=== PATIENT | male | born 1995 | race Caucasian/White ===

== ENCOUNTER 2017-09-03 05:37 | Emergency (ER) | payer BC, OTHER ==
[~2017-09-03] VITALS: Ht 180.3 cm; Wt 70.0 kg
[2017-09-03 05:43] VITALS: TEMP 36.7; Ht 180.3 cm; Wt 70.0 kg
[2017-09-03] MEDS ORDERED: ONDANSETRON 4MG OD TAB PO ONE (06:00)
[2017-09-03 06:14] VITALS: O2SAT 97
[2017-09-03 06:25] LABS: HEMATOCRIT 44.3 % (42-52); HEMOGLOBIN 16.5 g/dL (14.0-18.0); MEAN CELL VOLUME 83.9 fL (80-100); MEAN CORPUSCULAR HEMOGLOBIN 31.3 pg (25-34); MEAN CORPUSCULAR HGB CONC 37.2 g/dl (32-36); MEAN PLATELET VOLUME 9.7 fL (7.4-10.4); PLATELET COUNT 307 K/uL (130-400); RED CELL DISTRIBUTION WIDTH CV 12.3 % (11.5-14.5); RED CELL DISTRIBUTION WIDTH SD 37.2 fL (36.4-46.3); WHITE BLOOD COUNT 27.18 K/uL (4.8-10.8)
[2017-09-03 06:27] LABS: ALBUMIN 4.8 gm/dl (3.4-5.0); CALCIUM 9.2 mg/dl (8.5-10.1); CREATININE 1.11 mg/dl (0.60-1.40); POTASSIUM 3.3 mmol/L (3.5-5.1)
[2017-09-03 06:30] LABS: TOTAL PROTEIN 8.2 gm/dl (6.4-8.2)
[2017-09-03] MEDS ORDERED: SODIUM CHLORIDE 0.9% 1000ML 1,000 ML IV STA ×2 (06:48→07:50)
[2017-09-03 06:58] LABS: BASO % 0.1 %; BASO ABS # 0.04 K/uL (0-0.2); IG# 0.11 K/uL (0.00-0.02); LYMPH % 5.7 %; LYMPH ABS # 1.56 K/uL (1.2-3.4); MONO % 4.3 %; MONO ABS # 1.16 K/uL (0.11-0.59); NEUT % 89.5 %; NEUT ABS # 24.31 K/uL (1.4-6.5)
--- NOTE | 2017-09-03 06:59 | EMERGENCY ROOM VISIT NOTE ---
History Report prepared by Trish: Ladan Molina Under the Supervision of: Dr. Hope Lopes D.O. 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 The patient presents to the ED by EMS. He was drinking alcohol today. He states that he had too much to drink. He is nauseous and has vomited a lot. He has a sore throat. He reports abdominal pain. He denies any fall or injury. He had an appendectomy 1 week ago. 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 A total of 10 systems reviewed and were otherwise negative. Past Medical & Surgical Surgical Problems: (1) S/P appendectomy Family History No pertinent family history stated. Social History Smoking Status: Current Every Day Smoker Alcohol Use: occasionally Drug Use: cocaine Marital Status: single Occupation Status: [employer] student Current/Historical Medications No Active Prescriptions or Reported Meds Allergies Coded Allergies: Alcohol (Verified Allergy, Unknown, red syndrome, 09/03/17) Uncoded Allergies: POISON JEREMIAS (Allergy, Unknown, RASH, 09/04/16) Physical Exam Vital Signs Date Time Temp Pulse Resp B/P (MAP) Pulse Ox O2 Delivery O2 Flow Rate FiO2 09/03/17 07:57 89 14 101/71 94 09/03/17 06:14 97 Nasal Cannula 2.0 09/03/17 06:13 88 Room Air 09/03/17 06:13 80 16 106/56 97 Nasal Cannula 2.0 09/03/17 05:44 108 09/03/17 05:43 98 Room Air 09/03/17 05:43 36.7 106 18 122/63 98 Room Air Physical Exam GENERAL: alert, smells of EtOH, well nourished, no distress, non-toxic EYE EXAM: normal conjunctiva, PERRL and EOM's grossly intact OROPHARYNX: no exudate, no erythema, lips, buccal mucosa, and tongue normal and mucous membranes are dry NECK: supple, no nuchal rigidity, no adenopathy, non-tender LUNGS: Clear to auscultation. Normal chest wall mechanics HEART: no murmurs, S1 normal and S2 normal ABDOMEN: Healing fresh laparoscopic surgical sites. Steri strips beginning to peel. No surrounding erythema. No drainage. Abdomen soft, non-tender, normo- active bowel sounds, no masses, no rebound or guarding. BACK: Back is symmetrical on inspection and there is no deformity, no midline tenderness, no CVA tenderness. SKIN: no rashes and no bruising UPPER EXTREMITIES: upper extremities are grossly normal. LOWER EXTREMITIES: No pitting edema. NEURO EXAM: Normal sensorium, cranial nerves II-XII grossly intact, normal speech, no gross weakness of arms, no gross weakness of legs. Medical Decision & Procedures Laboratory Results 09/03/17 08:20 Red Blood Count 4.81, Mean Corpuscular Volume 84.8, Mean Corpuscular Hemoglobin 30.8, Mean Corpuscular Hemoglobin Concent 36.3, Mean Platelet Volume 9.3, Neutrophils (%) (Auto) 87.2, Lymphocytes (%) (Auto) 6.3, Monocytes (%) (Auto) 6.2, Eosinophils (%) (Auto) 0.0, Basophils (%) (Auto) 0.1, Neutrophils # (Auto) 18.06, Lymphocytes # (Auto) 1.30, Monocytes # (Auto) 1.28, Eosinophils # (Auto) 0.00, Basophils # (Auto) 0.02 09/03/17 05:45 Test 09/03/17 05:45 09/03/17 08:20 Anion Gap 15.0 mmol/L (3-11) Est Creatinine Clear Calc Drug Dose 104.2 ml/min Estimated GFR () 109.4 Estimated GFR (Non- 94.4 BUN/Creatinine Ratio 11.9 (10-20) Calcium Level 9.2 mg/dl (8.5-10.1) Total Bilirubin 0.9 mg/dl (0.2-1) Aspartate Amino Transf (AST/SGOT) 16 U/L (15-37) Alanine Aminotransferase (ALT/SGPT) 17 U/L (12-78) Alkaline Phosphatase 55 U/L (45-117) Total Protein 8.2 gm/dl (6.4-8.2) Albumin 4.8 gm/dl (3.4-5.0) Globulin 3.4 gm/dl (2.5-4.0) Albumin/Globulin Ratio 1.4 (0.9-2) Ethyl Alcohol mg/dL 142.0 mg/dl (0-3) White Blood Count 20.71 K/uL (4.8-10.8) Red Blood Count 4.81 M/uL (4.7-6.1) Hemoglobin 14.8 g/dL (14.0-18.0) Hematocrit 40.8 % (42-52) Mean Corpuscular Volume 84.8 fL (80-100) Mean Corpuscular Hemoglobin 30.8 pg (25-34) Mean Corpuscular Hemoglobin Concent 36.3 g/dl (32-36) Platelet Count 244 K/uL (130-400) Mean Platelet Volume 9.3 fL (7.4-10.4) Neutrophils (%) (Auto) 87.2 % Lymphocytes (%) (Auto) 6.3 % Monocytes (%) (Auto) 6.2 % Eosinophils (%) (Auto) 0.0 % Basophils (%) (Auto) 0.1 % Neutrophils # (Auto) 18.06 K/uL (1.4-6.5) Lymphocytes # (Auto) 1.30 K/uL (1.2-3.4) Monocytes # (Auto) 1.28 K/uL (0.11-0.59) Eosinophils # (Auto) 0.00 K/uL (0-0.5) Basophils # (Auto) 0.02 K/uL (0-0.2) RDW Standard Deviation 37.9 fL (36.4-46.3) RDW Coefficient of Variation 12.2 % (11.5-14.5) Immature Granulocyte % (Auto) 0.2 % Immature Granulocyte # (Auto) 0.05 K/uL (0.00-0.02) Laboratory results per my review. Medications Administered Medications (Trade) Dose Ordered Sig/Maribel Route Start Time Stop Time Status Last Admin Dose Admin Ondansetron HCl (Zofran Odt) 4 mg ONE ONCE PO 09/03/17 06:00 09/03/17 06:01 DC 09/03/17 06:00 4 MG Sodium Chloride 1,000 ml @ 999 mls/hr Q1H1M STAT IV 09/03/17 06:48 09/03/17 07:48 DC 09/03/17 07:22 999 MLS/HR Sodium Chloride 1,000 ml @ 999 mls/hr Q1H1M STAT IV 09/03/17 07:50 09/03/17 08:50 09/03/17 07:57 999 MLS/HR ED Course 0545: The patient was evaluated in room B6. A complete history and physical exam was performed. 0600: Zofran Odt 4 mg PO. 0648: NSS 1000 ml @ 999 mls/hr IV. 0838: Patient resting, heart rate 84, other vital signs stable. Patient states nausea and abdominal pain are improved. Abdomen soft and nontender on exam. Medical Decision Differential diagnosis: Etiologies such as alcohol intoxication, toxicologic, infection, hypoglycemia, electrolyte abnormalities, cardiac sources, intracerebral event, neurologic, as well as others were entertained. Medication Reconcilliation Current Medication List: was personally reviewed by me Blood Pressure Screening Patient's blood pressure: Normal blood pressure Blood pressure disposition: Did not require urgent referral Impression Primary Impression: Alcoholic intoxication Additional Impressions: Dehydration Leukocytosis Scribe Attestation The scribe's documentation has been prepared under my direction and personally reviewed by me in its entirety. I confirm that the note above accurately reflects all work, treatment, procedures, and medical decision making performed by me. Departure Information Dispostion Home / Self-Care Prescriptions No Active Prescriptions or Reported Meds Referrals No Doctor, Assigned (PCP) Patient Instructions My [facility] Additional Instructions Please drink responsibly and a safe location, do not drink and drive. If you have any new or concerning symptoms, please return the emergency room. Please liquids at frequent intervals to stay well-hydrated. Please follow-up with her family doctor or surgeon to have your way blood cell count rechecked as it was mildly elevated here. This could be related to your vomiting however given your recent surgery, a follow-up recheck these to be performed to assure that it has returned to normal levels. Problem Qualifiers Primary Impression: Alcoholic intoxication Complication of substance-induced condition: uncomplicated Qualified Codes: F10.920 - Alcohol use, unspecified with intoxication, uncomplicated Additional Impressions: Leukocytosis Leukocytosis type: unspecified Qualified Codes: D72.829 - Elevated white blood cell count, unspecified
[2017-09-03 08:33] LABS: BASO % 0.1 %; BASO ABS # 0.02 K/uL (0-0.2); HEMATOCRIT 40.8 % (42-52); HEMOGLOBIN 14.8 g/dL (14.0-18.0); IG# 0.05 K/uL (0.00-0.02); LYMPH % 6.3 %; MEAN CELL VOLUME 84.8 fL (80-100); MEAN CORPUSCULAR HEMOGLOBIN 30.8 pg (25-34); MEAN CORPUSCULAR HGB CONC 36.3 g/dl (32-36); MEAN PLATELET VOLUME 9.3 fL (7.4-10.4); MONO % 6.2 %; MONO ABS # 1.28 K/uL (0.11-0.59); NEUT % 87.2 %; NEUT ABS # 18.06 K/uL (1.4-6.5); PLATELET COUNT 244 K/uL (130-400); RED CELL DISTRIBUTION WIDTH CV 12.2 % (11.5-14.5); RED CELL DISTRIBUTION WIDTH SD 37.9 fL (36.4-46.3); WHITE BLOOD COUNT 20.71 K/uL (4.8-10.8)
--- NOTE | 2017-09-03 09:48 | EMERGENCY ROOM VISIT NOTE ---
ED Visit Note Pt was seen by Dr. Lopes, please see her notes. He was treated for an alcohol overdose. He asked to have his appendectomy wounds checked prior to discharge. He was examined. Benign abdomen. Wounds CDI. No dehiscence. Pt encouraged to follow up with his surgeon and not to drink excessive amounts of alcohol.
[2017-09-03 10:01] VITALS: BP 110/55; PULSE 64; O2SAT 93
== END 2017-09-03 10:03 | disposition home or self-care (01) ==
LOC: EDBD 05:37 → C.EDB 05:39
DX: F10.920 Alcohol use, unspecified with intoxication, uncomplicated (principal); E86.0 Dehydration; D72.829 Elevated white blood cell count, unspecified; F17.200 Nicotine dependence, unspecified, uncomplicated; Z90.89 Acquired absence of other organs